=== PATIENT | female | born 1985 | race Caucasian/White ===

== ENCOUNTER 2018-04-24 22:07 | Emergency (ER) | payer BC ==
[2018-04-24 22:25] VITALS: RESP 18
[2018-04-24] MEDS ORDERED: KETOROLAC 30 MG/ML 1 ML VIAL IM STA (23:39)
--- NOTE | 2018-04-24 23:42 | ED ---
Upper Extremity HPI - General Chief Complaint: Extremity Injury, Upper Stated Complaint: Shoulder pain Time Seen by Provider: 04/24/18 23:10 Source: patient Mode of arrival: ambulatory Limitations: no limitations - History of Present Illness Initial Comments: 32-year-old female patient presents the emergency department today for evaluation of left shoulder pain that radiates down her arm to her fingers. Patient states the pain was present when she woke this morning. States that the pain does increase with certain movements. She states it does occasionally radiate into the left side of her neck. She denies any numbness or tingling to the arm. Denies any known injury. Denies any history of similar symptoms. She denies any fever, chills, or wounds. Patient denies any recent rash, shortness breath, chest pain, abdominal pain, nausea, vomiting, diarrhea, constipation, back pain, dizziness, weakness, hematuria, dysuria, urinary urgency, urinary frequency, headache, visual changes, or any other complaints. - Related Data Home Medications Medication Instructions Recorded Confirmed Doxycycline Hyclate [Vibramycin] 100 mg PO BID 04/24/18 04/24/18 methylPREDNISolone [Medrol Dose See Taper PO DIRECTED 04/24/18 04/24/18 Pack] Allergies Allergy/AdvReac Type Severity Reaction Status Date / Time latex Allergy Rash/Hives Verified 04/24/18 23:07 prochlorperazine Allergy Unknown Verified 04/24/18 23:07 [From Compazine] shellfish derived [Shellfish] Allergy Nausea & Verified 04/24/18 23:07 Vomiting & Diarrhea Review of Systems ROS Statement: Those systems with pertinent positive or pertinent negative responses have been documented in the HPI. ROS Other: All systems not noted in ROS Statement are negative. Past Medical History Past Medical History: No Reported History History of Any Multi-Drug Resistant Organisms: None Reported Past Surgical History: No Surgical Hx Reported Past Psychological History: No Psychological Hx Reported Smoking Status: Never smoker Past Alcohol Use History: None Reported Past Drug Use History: None Reported General Exam Limitations: no limitations General appearance: alert, in no apparent distress, other (This is a well- developed, well-nourished adult female patient in no acute distress. Vital signs upon presentation are temperature 98.8F, pulse 76, respirations 18, blood pressure 149/80, pulse ox 97% on room air.) Eye exam: Present: normal appearance, PERRL, EOMI. Absent: scleral icterus, conjunctival injection, periorbital swelling ENT exam: Present: normal exam, normal oropharynx, mucous membranes moist Neck exam: Present: normal inspection, full ROM. Absent: tenderness, meningismus, lymphadenopathy Respiratory exam: Present: normal lung sounds bilaterally. Absent: respiratory distress, wheezes, rales, rhonchi, stridor Cardiovascular Exam: Present: regular rate, normal rhythm, normal heart sounds. Absent: systolic murmur, diastolic murmur, rubs, gallop, clicks GI/Abdominal exam: Present: soft, normal bowel sounds. Absent: distended, tenderness, guarding, rebound, rigid Extremities exam: Present: normal inspection, full ROM, normal capillary refill , other (Patient has no shoulder or elbow tenderness. Skin to the left upper extremity is pink, warm, and dry. Cap refills less than 3 seconds. Radial pulses 2+ and equal bilaterally. Patient does have increased pain with passive range of motion. No limitation in movement.). Absent: tenderness, pedal edema , joint swelling, calf tenderness Back exam: Present: normal inspection. Absent: vertebral tenderness Neurological exam: Present: alert, oriented X3, CN II-XII intact Psychiatric exam: Present: normal affect, normal mood Skin exam: Present: warm, dry, intact, normal color. Absent: rash Course Vital Signs 04/24/18 04/25/18 22:22 02:12 Temperature 98.8 F 97.8 F Pulse Rate 76 60 Respiratory 18 18 Rate Blood Pressure 149/80 112/62 O2 Sat by Pulse 97 96 Oximetry Medical Decision Making - Medical Decision Making 32-year-old female patient presents to the emergency department today for evaluation of nontraumatic left shoulder pain. Patient states pain increases when she perform certain movements especially abduction. There is no numbness or tingling. Neurovascular status is intact. Did perform EKG which showed normal sinus rhythm with no ectopy or evidence of ST elevation or depression. Given that there was no trauma did inform patient that we would not be performing x-rays today. She was given an injection of Toradol. This did improve her symptoms prior to discharge. She'll be discharged to follow-up with orthopedics if her symptoms are improving over the next 2 days. Return parameters discussed in detail. She verbalizes understanding and agreed with this plan. - EKG Data -: EKG Interpreted by Me EKG Comments: EKG obtained at 0039 shows normal sinus rhythm. Ventricular rate is 61, AK interval 134, QRS duration 86, QT 410, QTc 412. No evidence of ST elevation or depression. Disposition Clinical Impression: Left shoulder pain Disposition: HOME SELF-CARE Condition: Good Instructions: Shoulder Pain (ED) Additional Instructions: Perform gentle range of motion exercises. Take Tylenol for pain control. Follow-up with orthopedics for reevaluation if your symptoms don't improve over the next 1-2 days. Return here immediately for any new, worsening, or concerning symptoms. Is patient prescribed a controlled substance at d/c from ED?: No Referrals: Nicolle Patiño DO [Primary Care Provider] - 1-2 days Jamel Cohen DO [Doctor of Osteopathic Medicine] - 1-2 days Time of Disposition: 01:01
[2018-04-25 02:14] VITALS: BP 112/62; PULSE 60; TEMP 97.8
== END 2018-04-25 02:17 | disposition home or self-care (01) ==
LOC: EC 22:07
DX: M25.512 Pain in left shoulder (principal); M79.602 Pain in left arm; M79.645 Pain in left finger(s); M54.2 Cervicalgia; Z79.52 Long term (current) use of systemic steroids; Z88.8 Allergy status to other drugs, medicaments and biological substances; Z91.013 Allergy to seafood; Z91.040 Latex allergy status
CPT/HCPCS: 93005; 99283; 96372; J1885

== ENCOUNTER 2018-11-24 00:37 | Emergency (ER) | payer BC ==
[2018-11-24] MEDS ORDERED: SODIUM CHLORIDE 0.9% 1,000 ML IV STA (01:40)
[2018-11-24] MEDS ORDERED: KETOROLAC 30 MG/ML 1 ML VIAL IVP STA (01:40)
--- NOTE | 2018-11-24 01:45 | ED ---
General Adult HPI - General Chief complaint: Dizziness Stated complaint: Dizziness,Pain L Arm Time Seen by Provider: 11/24/18 00:55 Source: patient Mode of arrival: ambulatory Limitations: no limitations - History of Present Illness Initial comments: Loly Li is a previously healthy 32-year-old female who presents the emergency department today for evaluation left arm pain, lightheadedness and intermittent stabbing pain in her left posterior chest. Patient reports that she is experiencing left arm pain radiating from her bicep down to her hand up into her shoulder, which began around 7 PM while she was sitting at work playing a board game with a child. Pain is worse with palpation and certain movements. Patient is right-hand dominant the pain is in her left bicep. She denies any heavy lifting or injuries. She has not tried any medications or treatment for this pain. Patient reports that this evening approximately 1 hour prior to arrival she began feeling very lightheaded. She reports that symptoms were worse when walking up the stairs she felt as though she needed to lay down. She felt better when laying down. Patient reports she felt worse walking in to the hospital for a car. Patient also reports that she has had intermittent stabbing pain in her left posterior chest, pain lasts only seconds and has happened 4 times in the past 2 hours. Pain happens without provocation last seconds and resolves spontaneously. She reports she had URI-like symptoms in September but has not been ill since that time. Her child at home does have a URI with cough and congestion at this time. - Related Data Home Medications Medication Instructions Recorded Confirmed Doxycycline Hyclate [Vibramycin] 100 mg PO BID 04/24/18 04/24/18 methylPREDNISolone [Medrol Dose See Taper PO DIRECTED 04/24/18 04/24/18 Pack] Allergies Allergy/AdvReac Type Severity Reaction Status Date / Time latex Allergy Rash/Hives Verified 11/24/18 00:46 prochlorperazine Allergy Unknown Verified 11/24/18 00:46 [From Compazine] shellfish derived [Shellfish] Allergy Nausea & Verified 11/24/18 00:46 Vomiting & Diarrhea Review of Systems ROS Statement: Those systems with pertinent positive or pertinent negative responses have been documented in the HPI. ROS Other: All systems not noted in ROS Statement are negative. Past Medical History Past Medical History: No Reported History History of Any Multi-Drug Resistant Organisms: None Reported Past Surgical History: Orthopedic Surgery Past Psychological History: No Psychological Hx Reported Smoking Status: Former smoker Past Alcohol Use History: Rare Past Drug Use History: None Reported General Exam - General Exam Comments Initial Comments: Physical Exam GENERAL: Patient is well-developed and well-nourished. Patient is nontoxic and well- hydrated and is in no distress. HENT: Normocephalic, Atraumatic. EYES: PERRL, EOMI PULMONARY: Unlabored respirations. No audible rales rhonchi or wheezing was noted. CARDIOVASCULAR: There is a regular rate and rhythm without any murmurs gallops or rubs. ABDOMEN: Soft and nontender with normal bowel sounds. SKIN: Skin is clear with no lesions or rashes and otherwise unremarkable. : Deferred NEUROLOGIC: Patient is alert and oriented x3. Moving all extremities spontaneously MUSCULOSKELETAL: Normal extremities with adequate strength and full range of motion. No lower extremity swelling or edema. No calf tenderness. For range of motion of the left upper extremity Tenderness to palpation of the left bicep PSYCHIATRIC: Normal psychiatric evaluation. Limitations: no limitations Limitations: no limitations Course Vital Signs 11/24/18 11/24/18 11/24/18 00:42 01:26 01:40 Temperature 98.6 F Pulse Rate 93 90 Respiratory 18 18 Rate Blood Pressure 126/86 134/85 133/78 O2 Sat by Pulse 98 93 L 95 Oximetry 11/24/18 11/24/18 11/24/18 02:10 02:40 03:10 Temperature Pulse Rate 90 85 87 Respiratory 23 21 12 Rate Blood Pressure 120/77 129/78 117/64 O2 Sat by Pulse 95 95 95 Oximetry 11/24/18 11/24/18 03:30 04:10 Temperature Pulse Rate 71 74 Respiratory 18 18 Rate Blood Pressure 117/64 110/65 O2 Sat by Pulse 93 L 95 Oximetry - Reevaluation(s) Reevaluation #1: She was reevaluated she reports feeling better after IV fluids patient's agreeable plan for discharge home. Patient did endorse that she carries her 20- month-old daughter in her left arm all the time due to and tinnitus in her right arm thinks that her pain in her left arm is likely due to overuse. 11/24/18 05:00 EKG Findings - EKG Comments: EKG Findings:: EKG obtained at 12:55 AM rate is 87 rhythm is sinus there is normal axis, normal intervals no acute ST elevations or depressions no evidence of acute ischemia or infarction. Medical Decision Making - Medical Decision Making She was seen and evaluated history was obtained from patient Heart Score is 0 Patient is lightheaded with left arm pain and intermittent stabbing pain in the left posterior chest Cardiac workup was ordered EKG nonischemic Labs unremarkable CXR with no acute findings Patient with no complaints after IVF, feeling much better, agreeable to plan for discharge home. All questions pertaining to care were answered return parameters were discussed patient was discharged home in stable condition. - Lab Data Result diagrams: 11/24/18 01:20 11/24/18 01:20 Lab Results 11/24/18 11/24/18 11/24/18 Range/Units 01:20 01:20 01:20 WBC 8.8 (3.8-10.6) k/uL RBC 5.24 (3.80-5.40) m/uL Hgb 14.0 (11.4-16.0) gm/dL Hct 44.5 (34.0-46.0) % MCV 85.0 (80.0-100.0) fL MCH 26.8 (25.0-35.0) pg MCHC 31.6 (31.0-37.0) g/dL RDW 14.0 (11.5-15.5) % Plt Count 306 (150-450) k/uL Neutrophils % 57 % Lymphocytes % 32 % Monocytes % 6 % Eosinophils % 2 % Basophils % 1 % Neutrophils # 5.0 (1.3-7.7) k/uL Lymphocytes # 2.9 (1.0-4.8) k/uL Monocytes # 0.5 (0-1.0) k/uL Eosinophils # 0.2 (0-0.7) k/uL Basophils # 0.1 (0-0.2) k/uL PT 9.6 (9.0-12.0) sec INR 0.9 (<1.2) APTT 22.7 (22.0-30.0) sec D-Dimer 0.22 (<0.60) mg/L FEU Sodium (137-145) mmol/L Potassium (3.5-5.1) mmol/L Chloride (98-107) mmol/L Carbon Dioxide (22-30) mmol/L Anion Gap mmol/L BUN (7-17) mg/dL Creatinine (0.52-1.04) mg/dL Est GFR (CKD-EPI)AfAm (>60 ml/min/1.73 sqM) Est GFR (CKD-EPI)NonAf (>60 ml/min/1.73 sqM) Glucose (74-99) mg/dL Calcium (8.4-10.2) mg/dL Magnesium (1.6-2.3) mg/dL Total Bilirubin (0.2-1.3) mg/dL AST (14-36) U/L ALT (9-52) U/L Alkaline Phosphatase (38-126) U/L Total Creatine Kinase 80 (30-135) U/L CK-MB (CK-2) 0.3 (0.0-2.4) ng/mL CK-MB (CK-2) Rel Index 0.4 Troponin I <0.012 (0.000-0.034) ng/mL Total Protein (6.3-8.2) g/dL Albumin (3.5-5.0) g/dL Urine HCG, Qual (Not Detectd) 11/24/18 11/24/18 Range/Units 01:20 01:20 WBC (3.8-10.6) k/uL RBC (3.80-5.40) m/uL Hgb (11.4-16.0) gm/dL Hct (34.0-46.0) % MCV (80.0-100.0) fL MCH (25.0-35.0) pg MCHC (31.0-37.0) g/dL RDW (11.5-15.5) % Plt Count (150-450) k/uL Neutrophils % % Lymphocytes % % Monocytes % % Eosinophils % % Basophils % % Neutrophils # (1.3-7.7) k/uL Lymphocytes # (1.0-4.8) k/uL Monocytes # (0-1.0) k/uL Eosinophils # (0-0.7) k/uL Basophils # (0-0.2) k/uL PT (9.0-12.0) sec INR (<1.2) APTT (22.0-30.0) sec D-Dimer (<0.60) mg/L FEU Sodium 138 (137-145) mmol/L Potassium 4.4 (3.5-5.1) mmol/L Chloride 104 (98-107) mmol/L Carbon Dioxide 23 (22-30) mmol/L Anion Gap 11 mmol/L BUN 14 (7-17) mg/dL Creatinine 0.53 (0.52-1.04) mg/dL Est GFR (CKD-EPI)AfAm >90 (>60 ml/min/1.73 sqM) Est GFR (CKD-EPI)NonAf >90 (>60 ml/min/1.73 sqM) Glucose 84 (74-99) mg/dL Calcium 9.9 (8.4-10.2) mg/dL Magnesium 1.9 (1.6-2.3) mg/dL Total Bilirubin 0.4 (0.2-1.3) mg/dL AST 23 (14-36) U/L ALT 36 (9-52) U/L Alkaline Phosphatase 64 (38-126) U/L Total Creatine Kinase (30-135) U/L CK-MB (CK-2) (0.0-2.4) ng/mL CK-MB (CK-2) Rel Index Troponin I (0.000-0.034) ng/mL Total Protein 8.0 (6.3-8.2) g/dL Albumin 4.4 (3.5-5.0) g/dL Urine HCG, Qual Not Detected (Not Detectd) Disposition Clinical Impression: Orthostatic hypotension Disposition: HOME SELF-CARE Condition: Stable Instructions (If sedation given, give patient instructions): Dizziness (ED) Is patient prescribed a controlled substance at d/c from ED?: No Referrals: Nicolle Patiño DO [Primary Care Provider] - 1-2 days
--- NOTE | 2018-11-24 02:11 | XR ---
EXAM: XR Chest, 2 Views CLINICAL HISTORY: ITS.REASON XR Reason: Chest Pain TECHNIQUE: Frontal and lateral views of the chest. COMPARISON: No relevant prior studies available. FINDINGS: Lungs: Unremarkable. No consolidation. Pleural space: Unremarkable. No pneumothorax. Heart: Unremarkable. No cardiomegaly. Mediastinum: Unremarkable. Bones/joints: No acute fracture. IMPRESSION: No acute findings.
[2018-11-24 03:50] LABS: Basophils # (A) 0.1 k/uL (0-0.2); Basophils % (A) 1 %; Eosinophils # (A) 0.2 k/uL (0-0.7); Eosinophils % (A) 2 %; HCT 44.5 % (34.0-46.0); Lymphocytes # (A) 2.9 k/uL (1.0-4.8); Lymphocytes % (A) 32 %; MCH 26.8 pg (25.0-35.0); MCHC 31.6 g/dL (31.0-37.0); Mean Platelet Volume 7.2; Monocytes # (A) 0.5 k/uL (0-1.0); Monocytes % (A) 6 %; Neutrophils % (A) 57 %; Platelet Count 306 k/uL (150-450); RBC 5.24 m/uL (3.80-5.40); WBC 8.8 k/uL (3.8-10.6)
[2018-11-24 04:01] LABS: ALT 36 U/L (9-52); AST 23 U/L (14-36); Albumin 4.4 g/dL (3.5-5.0); Alkaline Phosphatase 64 U/L (38-126); Anion Gap 11 mmol/L; Blood Urea Nitrogen 14 mg/dL (7-17); Calcium 9.9 mg/dL (8.4-10.2); Carbon Dioxide 23 mmol/L (22-30); Chloride 104 mmol/L (98-107); Glucose 84 mg/dL (74-99); Magnesium 1.9 mg/dL (1.6-2.3); Potassium 4.4 mmol/L (3.5-5.1); Sodium 138 mmol/L (137-145); Total Bilirubin 0.4 mg/dL (0.2-1.3)
[2018-11-24 04:07] LABS: D-Dimer 0.22 mg/L FEU (<0.60); INR 0.9 (<1.2); Partial Thromboplastin Time 22.7 sec (22.0-30.0); Prothrombin Time 9.6 sec (9.0-12.0)
[2018-11-24 04:09] LABS: Creatine Kinase 80 U/L (30-135)
[2018-11-24 04:22] LABS: Creatine Kinase MB 0.3 ng/mL (0.0-2.4); Troponin I <0.012 ng/mL (0.000-0.034)
[2018-11-24 05:32] VITALS: BP 107/53; PULSE 81; RESP 16; TEMP 98.1
== END 2018-11-24 05:25 | disposition home or self-care (01) ==
LOC: EC 00:37
DX: I95.1 Orthostatic hypotension (principal); M79.602 Pain in left arm; M25.512 Pain in left shoulder; M79.642 Pain in left hand; Z87.891 Personal history of nicotine dependence; Z88.8 Allergy status to other drugs, medicaments and biological substances; Z91.013 Allergy to seafood; Z91.040 Latex allergy status; Z79.52 Long term (current) use of systemic steroids
CPT/HCPCS: 99284; 96374; 96361; 36415; 93005; 85379; 80053; 82550; 82553; 83735; 84484; 85025; 85610; 85730; 81025; 71046; J1885